=== PATIENT | male | born 1960 | race Caucasian/White ===

== ENCOUNTER 2016-11-30 09:13 | Day surgery (SDC) | payer OTHER ==
[2016-11-27 12:07] VITALS: BMI 25.3
[~2016-11-30] VITALS: Ht 177.8 cm; Wt 99.4 kg
[2016-11-30] VITALS (15 sets, daily range): BP systolic 117–162; BP diastolic 72–97; PULSE 81–95; RESP 16–25; Ht 177.8 cm; Wt 99.4 kg
--- NOTE | 2016-11-30 08:08 | HPN ---
Date/Time of Note Date/Time of Note DATE: 11/30/16 TIME: 08:08 Interval H&P Admission Note Pt. seen H&P reviewed: No system changes MEREDITH GIRALDO MD Nov 30, 2016 08:08
[~2016-11-30 09:13] MED LIST: ALBUTEROL; BEN50 PO; BUSP10TA2 PO; CEFAZOLIN 1 GM INJ ONE; DEXAMETHASONE 4 MG/ML 1 ML INJ ONE; FENTAnyl 50 MCG/ML VIAL ONE; GLYCOPYRROLATE 0.4 MG INJ ONE; IBUP800T25 PO; LIDOCAINE 2% (SDV) 5 ML INJ ONE; MIDAZOLAM 1 MG/ML 2 ML INJ ONE; NEOSTIGMINE 3 MG/3 ML SYRINGE ONE; NORCO; OLAN10TA7 PO; ONDANSETRON 4 MG INJ ONE; PROPOFOL 20 ML ONE; ROCURONIUM 50 MG INJ ONE; SEROQUEL; SERT100T PO; SUCCINYLCHOLINE CHLORIDE 100 MG/5 ML SYG IV ONE; SUGAMMADEX SODIUM 200 MG/2 ML VIAL IV ONE; VALIUM PO
[2016-11-30] MEDS ORDERED: QUET200T PO (10:03)
[2016-11-30] MEDS ORDERED: SERT100T PO (10:03)
[2016-11-30] MEDS ORDERED: OLAN10TA7 PO (10:03)
--- NOTE | 2016-11-30 10:07 | SIPON ---
Date/Time of Note Date/Time of Note DATE: 11/30/16 TIME: 10:06 Operative Report Preoperative Diagnosis duputrens contracture severe rt litlle recurrent Postoperative Diagnosis same Operation/Procedure Performed partial palmar fasciolotomy release contrature Surgeon: MEREDITH GIRALDO MD Anesthesia Type: general Estimated Blood Loss: minimal Complications: no MEREDITH GIRALDO MD Nov 30, 2016 10:07
[2016-11-30] MEDS ORDERED: QUET25TA26 PO (10:08)
[2016-11-30] MEDS ORDERED: ALBU18HF INHALATION (10:09)
[2016-11-30] MEDS ORDERED: DIAZ10TA4 PO (10:09)
[2016-11-30] MEDS ORDERED: IBUP800T25 PO (10:09)
[2016-11-30] MEDS ORDERED: FLUT1AER INHALATION (10:10)
[2016-11-30] MEDS ORDERED: HYDR-902 PO (10:10)
[2016-11-30] MEDS ORDERED: ASCO500C7 PO (10:11)
[2016-11-30] MEDS ORDERED: CHOL400T10 PO (10:11)
[2016-11-30] MEDS ORDERED: MAGN400T27 PO (10:12)
[2016-11-30] MEDS ORDERED: FLUMAZENIL 0.5 MG INJ ONE (10:15)
[2016-11-30] MEDS ORDERED: LIDOCAINE 1% (STERILE-PAK) 30 ML INJ ONE (10:26)
[2016-11-30] MEDS ORDERED: BUPIVACAINE 0.5% (SDV) 30 ML INJ ONE (10:26)
[2016-11-30] MEDS ORDERED: DIPHENHYDRAMINE 50 MG INJ IV PRN (11:00)
[2016-11-30] MEDS ORDERED: morphine (1 MG/ML) 10ML SYRINGE IV PRN ×3 (11:00)
[2016-11-30] MEDS ORDERED: LABETALOL HCL 20MG INJ IV PRN (11:00)
[2016-11-30] MEDS ORDERED: MIDAZOLAM 1 MG/ML 2 ML INJ IV PRN (11:00)
[2016-11-30] MEDS ORDERED: EPHEDrine SULFATE 50 MG/5 ML SYG IV PRN (11:00)
[2016-11-30] MEDS ORDERED: ONDANSETRON 4 MG INJ IV PRN (11:00)
[2016-11-30] MEDS ORDERED: HYDROmorphONE (0.2 MG/ML) 10ML SYG IV PRN ×2 (11:00)
[2016-11-30] MEDS ORDERED: hydrALAzine 20 MG INJ IV PRN (11:00)
[2016-11-30] MEDS ORDERED: OXYCODONE/ACETAMINOPHEN (5/325) TAB PO PRN ×2 (11:00)
[2016-11-30] MEDS ORDERED: MEPERIDINE 25 MG INJ IV PRN (11:00)
[2016-11-30] MEDS ORDERED: FENTAnyl 50 MCG/ML VIAL IV PRN ×2 (11:00)
[2016-11-30] MEDS ORDERED: ATROPINE 1 MG/10 ML SYRINGE IV PRN (11:00)
[2016-11-30] MEDS ORDERED: LABETALOL HCL 20MG INJ ONE (11:11)
[2016-11-30] MEDS: HYDROmorphONE (0.2 MG/ML) 10ML SYG IV PRN ×3 (12:24→12:50)
--- NOTE | 2016-11-30 19:09 | OPR ---
DATE OF OPERATION: 11/30/2016 SURGEON: Luis Jain MD FLUID DYNAMICIST: Staff anesthesiologist . PREOPERATIVE DIAGNOSIS: Dupuytren contracture with severe proximal interphalangeal (PIP) joint contracture, left hand, little finger. POSTOPERATIVE DIAGNOSIS: Dupuytren contracture with severe proximal interphalangeal (PIP) joint contracture, left hand, little finger. PROCEDURES: 1. Partial palmar fasciotomy. 2. Release of Dupuytren contracture. 3. Release of PIP joint contracture, left little finger. SURGICAL PAUSE: I examined the patient in the preop holding area. I confirmed the operative procedure and plan. I manny plan of surgical incision. I showed the plan and surgical incision to the patient. Confirmed to the operative procedure and plan. INFORMED CONSENT: Informed consent at the time I scheduled the operative procedure. I talked to the patient about the risks and hazards of surgery. Mentioning operative mortality, wound infection, nerve injury, good results, bad results leading to potential complications. The patient signed a note confirming the informed consent conversation. OPERATIVE PROCEDURE: The patient taken to surgery and anesthetized as above, sterile prep and drape of forearm. A series of small incisions were made in the palm. The Dupuytren cord identified, divided and partially excised. In the finger I made a longer incision to find the digital nerves to protect them and excised the Dupuytren cord and released the _volar plate extending the finger to about 150 degree extension with significant improvement and fixed it with longitudinal Colette wire to hold the release. Each step and level I lookef for and protected the digital nerves I did a loose closure with Vicryl wrapped suture leaving significant defects as described by Efrain. Efrain described a so called open palm technique which he observed that if you use no sutures they got a very nice closure over the next couple of weeks. We have tried it and it works, so that is what I did today. At the time I interviewed the patient in the preop holding area I was careful to tell the patient that I would be very much surprised if we got complete release. I said I hoped to make him better, but I would be surprised if he got a complete release and he understood that. The operative procedures was about half hour to 45 minutes until the patient was awake in recovery. DISCHARGE MEDICATIONS: Hydrocodone/acetaminophen and Keflex. FOLLOWUP: In our office in a week. DISCHARGE INSTRUCTIONS: I was careful to point out to the patient that we would not refill his hydrocodone/acetaminophen past the postoperative period. Dictated By: Luis Jain MD /christian/mario alberto /Document#: [id number] [facility]
== END 2016-11-30 14:15 | disposition home or self-care (01) ==
LOC: SDS 09:13
PROVIDERS: ATTEND Orthopaedic Surgery Hand Surgery
DX: M72.0 Palmar fascial fibromatosis [Dupuytren] (principal)
CPT/HCPCS: 26045; 88305; C1713; J0690; J1100; J1170; J2250; J2405; J3010; Z7512; Z7610; J2710; J7999